=== PATIENT | male | born 1960 ===

== ENCOUNTER 2018-07-29 10:12 | Outpatient (CLI) | payer OTHER ==
[~2018-07-29] VITALS: Ht 175.3 cm; Wt 89.8 kg
[2018-07-29] MEDS ORDERED: DERMOTIC20 ML OTIC (11:30)
== END 2018-07-29 10:30 | disposition home or self-care (01) ==
LOC: OFIC 805 10:12
DX: H92.02 Otalgia, left ear (principal); J31.0 Chronic rhinitis; M54.2 Cervicalgia; J37.0 Chronic laryngitis; R05 Cough; H93.8X3 Other specified disorders of ear, bilateral

== ENCOUNTER 2018-09-16 10:41 | Outpatient (CLI) | payer OTHER ==
[~2018-09-16] VITALS: Ht 152.4 cm; Wt 89.8 kg
[~2018-09-16 10:41] MED LIST: DERMOTIC20 ML OTIC
== END 2018-09-16 11:00 | disposition home or self-care (01) ==
LOC: OFIC 805 10:41
DX: J31.0 Chronic rhinitis (principal); L29.9 Pruritus, unspecified; M54.2 Cervicalgia